=== PATIENT | female | born 1965 | race Caucasian/White ===

== ENCOUNTER 2019-07-07 03:54 | Observation (INO) | payer BC ==
[~2019-07-07] VITALS: Ht 165.1 cm; Wt 125.0 kg
[2019-07-07] VITALS (10 sets, daily range): BP systolic 117–138; BP diastolic 64–86
[2019-07-07] MEDS ORDERED: BISACODYL 10 MG SUPP (DULCOLAX) PR PRN (04:15)
[2019-07-07] MEDS ORDERED: ONDANSETRON 4 MG/2 ML (SDV) Z0FRAN IV PRN (04:15)
[2019-07-07] MEDS ORDERED: polyethylene glycoL POWDER 17 GM (MIRALAX) PACK PO PRN (04:15)
[2019-07-07] MEDS ORDERED: MELATONIN 3 MG TABLET PO PRN (04:15)
[2019-07-07] MEDS: IBUPROFEN 600 MG (MOTRIN) TAB PO SCH ×3 (05:48→19:52)
[2019-07-07 06:55] LABS: BASOPHILS % (AUTO) 0 % (0-10); EOSINOPHILS # (AUTO) 0.3 10^3/uL (0.0-0.3); EOSINOPHILS % (AUTO) 3 % (0-10); HEMATOCRIT 40 % (35-52); HEMOGLOBIN 12.7 G/DL (11.5-16.0); LYMPHOCYTES # (AUTO) 1.7 X 10^3 (1.0-4.0); LYMPHOCYTES % (AUTO) 16 % (12-44); MEAN CORPUSCULAR HEMOGLOBIN 30 PG (25-34); MEAN CORPUSCULAR HGB CONC 32 G/DL (32-36); MEAN CORPUSCULAR VOLUME 93 FL (80-99); MEAN PLATELET VOLUME 9.2 FL (7.4-10.4); MONOCYTES # (AUTO) 0.7 X 10^3 (0.0-1.0); MONOCYTES % (AUTO) 7 % (0-12); NEUTROPHILS # (AUTO) 7.9 X 10^3 (1.8-7.8); NEUTROPHILS % (AUTO) 75 % (42-75); PLATELET COUNT 297 10^3/uL (130-400); WHITE BLOOD COUNT 10.6 10^3/uL (4.3-11.0)
[2019-07-07 07:13] LABS: ALANINE AMINOTRANSFERASE 21 U/L (0-55); ALBUMIN 3.7 GM/DL (3.2-4.5); ALKALINE PHOSPHATASE 109 U/L (40-136); BILIRUBIN,TOTAL 0.4 MG/DL (0.1-1.0); BUN/CREATININE RATIO 18; CALCIUM 9.4 MG/DL (8.5-10.1); CARBON DIOXIDE 23 MMOL/L (21-32); CHLORIDE 109 MMOL/L (98-107); CREATININE SERUM 0.78 MG/DL (0.60-1.30); GFR ESTIMATED > 60; GLUCOSE 110 MG/DL (70-105); SODIUM 142 MMOL/L (135-145)
[2019-07-07] MEDS ORDERED: FLU QUADRIvalent (5+ YOA) 2019-2020 (AFLURIA) 0.5 ML IM ONE (07:15)
--- NOTE | 2019-07-07 08:34 | History & Physical-Hospitalist ---
History of Present Illness HPI/Chief Complaint Pt is a 53yoCM with no known PMH who presented to outside ER due to chest pain. She states that she slept in a chair a few days ago and has had shoulder since then that she didn't think much other. She has also had a cough during this time frame. 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 She took some Aleve which helped. She then went to a game last night and after eating at [employer] and walking around [place] she felt short of breath. On her drive home she decided to seek evaluation in the ER. She underwent CTA which was negative for central PE. Troponin was done and was negative. CTA did revealed a small/moderate pericardial effusion and the [employer] believed she heard a friction rub. She was transferred here for cardiology evaluation. She states the motrin this morning has helped. She describes her current pain as her left breast feeling heavier than normal but days it is not chest heaviness. Of note her daughter is on the heart transplant list due to what sounds like viral myocarditis. Date Seen 07/07/19 Time Seen by a Provider: 08:31 Attending Physician Todd Coles MD PCP No,Local Physician Referring Physician Date of Admission Jul 07, 2019 at 05:08 Home Medications & Allergies Home Medications Reviewed patient Home Medication Reconciliation performed by pharmacy medication reconciliations drafting technician and/or nursing. Patients Allergies have been reviewed. Allergies Allergies Coded Allergies No Allergy Information Available (Unverified07/07/19) Past Wxogdlt-Wfniwl-Gwrlrr Hx Past Med/Social Hx: Reviewed Nursing Past Med/Soc Hx Patient Social History Marrital Status: Employed/Student: employed Smoking Status: Never a Smoker Recent Foreign Travel: No Contact w/other who traveled: No Recent Infectious Disease Expo: No Past Medical History Female Reproductive Disorders: Polycystic Ovarian Dis Family History Reviewed Nursing Family Hx Review of Systems Constitutional: chills; No fever, No weakness EENTM: no symptoms reported Respiratory: cough, dyspnea on exertion; No hemoptysis, No wheezing Cardiovascular: chest pain; No edema, No Hx of Intervention Gastrointestinal: no symptoms reported Genitourinary: no symptoms reported Musculoskeletal: joint pain (shoulder pain) Skin: no symptoms reported Psychiatric/Neurological: No Symptoms Reported Physical Exam Physical Exam Vital Signs Vital Signs - First Documented 07/07/19 05:15 Temp 36.1 Pulse 86 Resp 20 B/P (MAP) 117/68 (84) Pulse Ox 94 O2 Delivery Room Air Capillary Refill : Height, Weight, BMI Height: '" Weight: lbs. oz. kg; 46.37 BMI Method: General Appearance: No Apparent Distress, WD/WN, Obese HEENT: PERRL/EOMI, Moist Mucous Membranes; No Scleral Icterus (L), No Scleral Icterus (R) Neck: Normal Inspection, Supple Respiratory: Chest Non Tender, Lungs Clear, No Accessory Muscle Use, No Respiratory Distress Cardiovascular: Regular Rate, Rhythm, No Murmur Gastrointestinal: Normal Bowel Sounds, Non Tender, Soft Extremity: No Calf Tenderness, No Pedal Edema Neurologic/Psychiatric: Alert, Oriented x3, Normal Mood/Affect Skin: Normal Color, Warm/Dry Results Results/Procedures Labs Laboratory Tests 07/07/19 06:40 07/08/19 03:07 07/08/19 03:08 Patient resulted labs reviewed. Imaging: Reviewed Imaging Report Assessment/Plan Admission Diagnosis Chest Pain Admission Status: Observation Assessment and Plan Chest pain Concern for pericarditis from [facility] Echo ordered Started on ibuprofen I think more consistent with pleurisy given history and exam Cardiology consulted, appreciate recs Troponin negative at OSH and here CRP elevated Monitor on Telemetry Diagnosis/Problems Diagnosis/Problems (1) Chest pain Qualifiers: Chest pain type: chest pain on breathing Qualified Codes: R07.1 - Chest pain on breathing Clinical Quality Measures DVT/VTE Risk/Contraindication: Risk Factor Score Per Nursin RFS Level Per Nursing on Admit: 4+=Very High TODD COLES MD Jul 07, 2019 08:33
[2019-07-07] MEDS: BENZONATATE 100 MG (TESSALON) CAPSULE PO PRN ×2 (09:10→20:05)
--- NOTE | 2019-07-07 11:18 | Consultation-Cardiology ---
HPI-Cardiology Cardiology Consultation Date of Consultation 07/07/19 Date of Admission Time Seen by Provider: 11:13 Indication: Chest pain HPI 53-year-old lady with family history of heart disease, was in her usual state of health, has been having mild cough and upper respiratory tract congestion, started with shoulder pain last week, reporting left sided shoulder pain, improved by stretching. Continue to have low-grade fever and cough and feeling tired, started to have left-sided chest pain described as dull achiness underneath her left breast not radiating, mild discomfort with deep inspiration and coughing. No shortness of breath. No syncope or near syncopal episode, reporting mild pedal edema usually by the end of the day. Home Medications & Allergies Allergies: Coded Allergies: No Allergy Information Available (Unverified , 07/07/19) Home Medication List Reviewed: Yes TNT-Ebnlel-Ujsujx Hx Patient Social History Marital Status: Employed/Student: employed Smoking Status: Never a Smoker Recent Foreign Travel: No Recent Infectious Disease Expo: No Past Medical History Discussed below Family Medical History Family Medical Hx Mother has history of congestive heart failure Daughter has history of pulmonary stenosis and heart failure Review of Systems-General Review of Systems Constitutional: chills; No fever; malaise; No weakness EENTM: see HPI, no symptoms reported Respiratory: see HPI, cough, dyspnea on exertion; No hemoptysis, No orthopnea, No phlegm, No short of breath, No stridor, No wheezing, No other Cardiovascular: see HPI, chest pain, edema; No Hx of Intervention, No palpitations, No syncope, No vascular heart diseas, No other Gastrointestinal: no symptoms reported, see HPI Genitourinary: no symptoms reported, see HPI Musculoskeletal: see HPI, joint pain (shoulder pain) Skin: no symptoms reported, see HPI Psychiatric/Neurological: No Symptoms Reported, See HPI Reviewed Test Results Reviewed Test Results Lab Laboratory Tests Test 07/07/19 06:40 Range/Units White Blood Count 10.6 4.3-11.0 10^3/uL Red Blood Count 4.27 L 4.35-5.85 10^6/uL Hemoglobin 12.7 11.5-16.0 G/DL Hematocrit 40 35-52 % Mean Corpuscular Volume 93 80-99 FL Mean Corpuscular Hemoglobin 30 25-34 PG Mean Corpuscular Hemoglobin Concent 32 32-36 G/DL Red Cell Distribution Width 14.0 10.0-14.5 % Platelet Count 297 130-400 10^3/uL Mean Platelet Volume 9.2 7.4-10.4 FL Neutrophils (%) (Auto) 75 42-75 % Lymphocytes (%) (Auto) 16 12-44 % Monocytes (%) (Auto) 7 0-12 % Eosinophils (%) (Auto) 3 0-10 % Basophils (%) (Auto) 0 0-10 % Neutrophils # (Auto) 7.9 H 1.8-7.8 X 10^3 Lymphocytes # (Auto) 1.7 1.0-4.0 X 10^3 Monocytes # (Auto) 0.7 0.0-1.0 X 10^3 Eosinophils # (Auto) 0.3 0.0-0.3 10^3/uL Basophils # (Auto) 0.0 0.0-0.1 10^3/uL Sodium Level 142 135-145 MMOL/L Potassium Level 4.0 3.6-5.0 MMOL/L Chloride Level 109 H 98-107 MMOL/L Carbon Dioxide Level 23 21-32 MMOL/L Anion Gap 10 5-14 MMOL/L Blood Urea Nitrogen 14 7-18 MG/DL Creatinine 0.78 0.60-1.30 MG/DL Estimat Glomerular Filtration Rate > 60 BUN/Creatinine Ratio 18 Glucose Level 110 H 70-105 MG/DL Calcium Level 9.4 8.5-10.1 MG/DL Corrected Calcium 9.6 8.5-10.1 MG/DL Total Bilirubin 0.4 0.1-1.0 MG/DL Aspartate Amino Transf (AST/SGOT) 14 5-34 U/L Alanine Aminotransferase (ALT/SGPT) 21 0-55 U/L Alkaline Phosphatase 109 40-136 U/L Troponin I < 0.028 <0.028 NG/ML C-Reactive Protein High Sensitivity 8.25 H 0.00-0.50 MG/DL Total Protein 7.0 6.4-8.2 GM/DL Albumin 3.7 3.2-4.5 GM/DL Physical Exam Physical Exam Vital Signs Vital Signs - First Documented 07/07/19 05:15 Temp 36.1 Pulse 86 Resp 20 B/P (MAP) 117/68 (84) Pulse Ox 94 O2 Delivery Room Air Capillary Refill : Height, Weight, BMI Height: '" Weight: lbs. oz. kg; 46.37 BMI Method: General Appearance: No Apparent Distress, WD/WN, Obese Eyes: Bilateral Eye Normal Inspection, Bilateral Eye PERRL, Bilateral Eye EOMI HEENT: PERRL/EOMI, Moist Mucous Membranes; No Scleral Icterus (L), No Scleral Icterus (R) Neck: Normal Inspection, Supple Respiratory: Chest Non Tender, Lungs Clear, No Accessory Muscle Use, No R espiratory Distress Cardiovascular: Regular Rate, Rhythm, No Murmur Gastrointestinal: Normal Bowel Sounds, Non Tender, Soft Back: Normal Inspection, No CVA Tenderness, No Vertebral Tenderness Extremity: No Calf Tenderness, No Pedal Edema Neurologic/Psychiatric: Alert, Oriented x3, Normal Mood/Affect Skin: Normal Color, Warm/Dry Lymphatic: No Adenopathy A/P-Cardiology Admission Diagnosis Chest pain Shortness of breath Family history of atherosclerosis Assessment/Plan Chest pain nonspecific etiology, atypical in presentation, EKG showed poor R- wave progression in the anterior lead, CT scan was reported to have small amount of pericardial effusion, I will evaluate 2-D echocardiogram and planning to do stress test as an outpatient. Cough and shortness of breath, upper respiratory tract infection, nasal con gestion, managed by primary care physician Recurrent pedal edema, probably secondary to venous insufficiency, planning to evaluate echocardiogram and recommended compression stocking Obesity, BMI 46, high risk of sleep apnea, reporting snoring, consider sleep study as an outpatient Family history of heart disease Clinical Quality Measures DVT/VTE Risk/Contraindication: Risk Factor Score Per Nursin RFS Level Per Nursing on Admit: 4+=Very High CHITO PETERSON MD Jul 07, 2019 11:18
[2019-07-07] MEDS ORDERED: SALINE NASAL SPRAY (OCEAN) 45 ML BTL PRN (15:15)
[2019-07-07] MEDS ORDERED: PATIENT MAY USE OWN MED,SINGLE MED PO SCH (15:15)
--- NOTE | 2019-07-07 15:21 | Diagnostic Imaging Report ---
PROCEDURE: Chest 1 view, AP/PA only. INDICATION: Chest pain. COMPARISON: None available. FINDINGS: Low lung volumes. Opacities in the left lung base are felt to be due to summation shadow, patient's body habitus and cardiac shadow; however, the posterior lower lobes are poorly evaluated by portable radiography. No pleural effusion or pneumothorax. Cardiac silhouette is enlarged. IMPRESSION: Left basilar opacities favor summation shadow due to patient's body habitus and cardiac silhouette; however, posterior lower lobes are poorly evaluated by portable radiography. If further evaluation of this is deemed warranted, PA and lateral chest radiographs would provide much better assessment. Dictated by: Dictated on workstation # [id number]
[2019-07-07] MEDS ORDERED: MONTELUKAST 10 MG (SINGULAIR) TAB PO SCH (21:00)
[2019-07-08] VITALS: BP 124/74
[2019-07-08 03:24] LABS: HEMOGLOBIN 12.6 G/DL (11.5-16.0); MEAN PLATELET VOLUME 8.9 FL (7.4-10.4); RED CELL DISTRIBUTION WIDTH 14.4 % (10.0-14.5); WHITE BLOOD COUNT 6.3 10^3/uL (4.3-11.0)
[2019-07-08 03:43] LABS: ALANINE AMINOTRANSFERASE 24 U/L (0-55); ALBUMIN 3.6 GM/DL (3.2-4.5); ALKALINE PHOSPHATASE 99 U/L (40-136); BILIRUBIN,TOTAL 0.6 MG/DL (0.1-1.0); BUN/CREATININE RATIO 15; CALCIUM 9.5 MG/DL (8.5-10.1); CARBON DIOXIDE 21 MMOL/L (21-32); CHLORIDE 109 MMOL/L (98-107); CREATININE SERUM 0.81 MG/DL (0.60-1.30); GFR ESTIMATED > 60; GLUCOSE 92 MG/DL (70-105); POTASSIUM 3.8 MMOL/L (3.6-5.0); SODIUM 141 MMOL/L (135-145); TOTAL PROTEIN 6.9 GM/DL (6.4-8.2)
[2019-07-08] MEDS: IBUPROFEN 600 MG (MOTRIN) TAB PO SCH (07:35)
[2019-07-08 08:00] VITALS: BP 127/78
[2019-07-08] MEDS: BENZONATATE 100 MG (TESSALON) CAPSULE PO PRN (08:02)
--- NOTE | 2019-07-08 08:47 | Cardiology Progress Note ---
Subjective Date Seen by Provider: Jul 08, 2019 Time Seen by Provider: 08:46 Subjective/Events-last exam Patient is sitting in a chair, still having some cough, no chest pain Review of Systems General: No Chills, No Night Sweats, No Fatigue, No Malaise, No Appetite, No Other HEENT: No Head Aches, No Visual Changes, No Eye Pain, No Ear Pain, No Dysphasia, No Sinus Congestion, No Post Nasal Drip, No Sore Throat, No Other Pulmonary: No Dyspnea, No Cough, No Pleuritic Chest Pain, No Other Cardiovascular: No: Chest Pain, Palpitations, Orthopnea, Paroxysmal Noc. Dyspnea, Edema, Lt Headedness, Other Objective-Cardiology Exam Last Set of Vital Signs Vital Signs 07/08/19 07/08/19 04:00 07:00 Pulse 92 Resp 25 Pulse Ox 92 O2 Delivery Room Air Capillary Refill : Less Than 3 Seconds I&O Intake and Output 07/08/19 00:00 Intake Total 2490 ml Output Total 3700 ml Balance -1210 ml Intake Oral 2490 ml Output Urine Total 3700 ml # Bowel Movements 1 Daily Weight Change No No General: Alert, Oriented X3, Cooperative HEENT: Atraumatic, PERRLA Neck: Supple, No JVD, No Thyromegaly Lungs: Clear to Auscultation, Normal Air Movement Heart: Regular Rate, Normal S1, Normal S2, No Murmurs Abdomen: Normal Bowel Sounds, Soft, No Tenderness, No Hepatosplenomegaly, No Masses Extremities: No Clubbing, No Cyanosis, No Edema, Normal Pulses, No Tenderness/Swelling Skin: No Rashes, No Breakdown, No Significant Lesion Neuro: Normal Gait, Normal Speech, Strength at 5/5 X4 Ext, Normal Tone, Sensation Intact Psych/Mental Status: Mental Status NL, Mood NL Results Lab Laboratory Tests 07/08/19 03:07 07/08/19 03:08 A/P-Cardiology Admission Diagnosis Chest pain Shortness of breath Family history of atherosclerosis Assessment/Plan Chest pain nonspecific etiology, atypical in presentation, EKG showed poor R- wave progression in the anterior lead, CT scan was reported to have small amount of pericardial effusion, echocardiogram did not show any significant pericardial effusion, normal LV size and function. Planning to do a stress test as an outp atient in one to 2 weeks Cough and shortness of breath, upper respiratory tract infection, nasal congestion, managed by primary care physician Recurrent pedal edema, probably secondary to venous insufficiency, planning to evaluate echocardiogram and recommended compression stocking Obesity, BMI 46, high risk of sleep apnea, reporting snoring, consider sleep study as an outpatient Family history of heart disease Clinical Quality Measures DVT/VTE Risk/Contraindication: Risk Factor Score Per Nursin RFS Level Per Nursing on Admit: 4+=Very High CHITO PETERSON MD Jul 08, 2019 08:47
--- NOTE | 2019-07-08 09:39 | Discharge Inst-Simple/Standard ---
Discharge Inst-Standard Patient Instructions/Follow Up Plan of Care/Instructions/FU: Please continue to take your medications as written. Please follow up with a primary care doctor in the next 2 weeks to follow up this hospital stay. Please follow up with Dr Hayes in 1-2 weeks as well. Activity as Tolerated: Yes Discharge Diet: No Restrictions Return to The Hospital For: Chest pain, shortness of breath, worsening cough, fever, if you feel you are getting worse. TODD DAVID MD Jul 08, 2019 09:39
--- NOTE | 2019-07-08 10:04 | Discharge Summary ---
Diagnosis/Chief Complaint Date of Admission Jul 07, 2019 at 05:08 Date of Discharge Discharge Date: Jul 08, 2019 Admission Diagnosis Chest Pain Primary Care No,Local Physician Discharge Diagnosis (1) Chest pain Discharge Summary Discharge Physical Exam Allergies: Coded Allergies: No Allergy Information Available (Unverified , 07/07/19) Vitals & I&Os Vital Signs Date Time Temp Pulse Resp B/P (MAP) Pulse Ox O2 Delivery O2 Flow Rate FiO2 07/08/19 08:15 Room Air 07/08/19 08:15 95 07/08/19 08:00 37.2 89 18 127/78 (94) Hospital Course Labs (last 24 hrs) Laboratory Tests 07/08/19 03:07: White Blood Count 6.3, Red Blood Count 4.20L, Hemoglobin 12.6, Hematocrit 39, Mean Corpuscular Volume 93, Mean Corpuscular Hemoglobin 30, Mean Corpuscular Hemoglobin Concent 32, Red Cell Distribution Width 14.4, Platelet Count 275, Mean Platelet Volume 8.9 07/08/19 03:08: Sodium Level 141, Potassium Level 3.8, Chloride Level 109H, Carbon Dioxide Level 21, Anion Gap 11, Blood Urea Nitrogen 12, Creatinine 0.81, Estimat Glomerular Filtration Rate > 60, BUN/Creatinine Ratio 15, Glucose Level 92, Calcium Level 9.5, Corrected Calcium 9.8, Total Bilirubin 0.6, Aspartate Amino Transf (AST/SGOT) 18, Alanine Aminotransferase (ALT/SGPT) 24, Alkaline Phosphatase 99, Total Protein 6.9, Albumin 3.6 Patient resulted labs reviewed. Pending Labs Laboratory Tests 07/08/19 03:07: White Blood Count 6.3, Red Blood Count 4.20, Hemoglobin 12.6, Hematocrit 39, Mean Corpuscular Volume 93, Mean Corpuscular Hemoglobin 30, Mean Corpuscular Hemoglobin Concent 32, Red Cell Distribution Width 14.4, Platelet Count 275, Mean Platelet Volume 8.9 07/08/19 03:08: Sodium Level 141, Potassium Level 3.8, Chloride Level 109, Carbon Dioxide Level 21, Anion Gap 11, Blood Urea Nitrogen 12, Creatinine 0.81, Estimat Glomerular Filtration Rate > 60, BUN/Creatinine Ratio 15, Glucose Level 92, Calcium Level 9.5, Corrected Calcium 9.8, Total Bilirubin 0.6, Aspartate Amino Transf (AST/SGOT) 18, Alanine Aminotransferase (ALT/SGPT) 24, Alkaline Phosphatase 99, Total Protein 6.9, Albumin 3.6 Imaging: Reviewed Imaging Report Discharge Home Medications: Active Scripts Active No Active Prescriptions or Reported Medications Instructions to patient/family Please see electronic discharge instructions given to patient. Clinical Quality Measures DVT/VTE Risk/Contraindication: Risk Factor Score Per Nursin RFS Level Per Nursing on Admit: 4+=Very High Problem Qualifiers (1) Chest pain: Chest pain type: chest pain on breathing Qualified Codes: R07.1 - Chest pain on breathing TODD DAVID MD Jul 08, 2019 10:04
== END 2019-07-08 10:30 | disposition home or self-care (01) ==
LOC: INTOOBSV 05:08 → ICU 05:08
PROVIDERS: ADMIT Family Medicine; ATTEND Family Medicine
DX: R07.1 Chest pain on breathing (principal); I31.3 Pericardial effusion (noninflammatory); R06.02 Shortness of breath; E28.2 Polycystic ovarian syndrome; R60.0 Localized edema; J06.9 Acute upper respiratory infection, unspecified; E66.9 Obesity, unspecified; R06.83 Snoring; I34.0 Nonrheumatic mitral (valve) insufficiency; Z82.49 Family history of ischemic heart disease and other diseases of the circulatory system; Z68.42 Body mass index [BMI] 45.0-49.9, adult
CPT/HCPCS: 36415; 71045; 80053; 84484; 85025; 85027; 86141; 87081; 93005; 93306

== ENCOUNTER 2019-12-24 20:08 | Emergency (ER) | payer BC ==
[~2019-12-24] VITALS: Ht 165.1 cm; Wt 120.0 kg
[2019-12-24 21:02] LABS: BASOPHILS % (AUTO) 0 % (0-10); EOSINOPHILS # (AUTO) 0.1 10^3/uL (0.0-0.3); EOSINOPHILS % (AUTO) 1 % (0-10); HEMATOCRIT 42 % (35-52); HEMOGLOBIN 13.9 G/DL (11.5-16.0); LYMPHOCYTES # (AUTO) 1.4 X 10^3 (1.0-4.0); LYMPHOCYTES % (AUTO) 30 % (12-44); MEAN CORPUSCULAR HEMOGLOBIN 30 PG (25-34); MEAN CORPUSCULAR HGB CONC 33 G/DL (32-36); MEAN CORPUSCULAR VOLUME 90 FL (80-99); MEAN PLATELET VOLUME 9.3 FL (7.4-10.4); MONOCYTES # (AUTO) 0.5 X 10^3 (0.0-1.0); MONOCYTES % (AUTO) 10 % (0-12); NEUTROPHILS # (AUTO) 2.8 X 10^3 (1.8-7.8); NEUTROPHILS % (AUTO) 58 % (42-75); PLATELET COUNT 227 10^3/uL (130-400); RED CELL DISTRIBUTION WIDTH 14.8 % (10.0-14.5); WHITE BLOOD COUNT 4.7 10^3/uL (4.3-11.0)
[2019-12-24] MEDS ORDERED: ACETAMINOPHEN 500 MG TAB (TYLENOL) ONE (21:02)
[2019-12-24] MEDS ORDERED: ACETAMINOPHEN 500 MG TAB (TYLENOL) PO ONE (21:15)
[2019-12-24 21:19] LABS: ERYTHROCYTE SEDIMENTATION RATE 56 MM/HR (0-30)
[2019-12-24 21:20] LABS: INR 0.9 (0.8-1.4); PROTHROMBIN TIME PATIENT 12.8 SEC (12.2-14.7)
[2019-12-24 21:21] LABS: ALANINE AMINOTRANSFERASE 111 U/L (0-55); ALBUMIN 3.9 GM/DL (3.2-4.5); ALKALINE PHOSPHATASE 102 U/L (40-136); BILIRUBIN,TOTAL 0.4 MG/DL (0.1-1.0); BUN/CREATININE RATIO 15; CALCIUM 8.8 MG/DL (8.5-10.1); CARBON DIOXIDE 24 MMOL/L (21-32); CHLORIDE 102 MMOL/L (98-107); CREATININE SERUM 0.86 MG/DL (0.60-1.30); GFR ESTIMATED > 60; GLUCOSE 91 MG/DL (70-105); SODIUM 138 MMOL/L (135-145); TOTAL PROTEIN 7.6 GM/DL (6.4-8.2)
[2019-12-24 21:28] LABS: FIBRIN DEGRADATION PRODUCTS 0.44 UG/ML (0.00-0.49)
--- NOTE | 2019-12-24 21:36 | Diagnostic Imaging Report ---
INDICATION: Positive for COVID with worsening dyspnea. Frontal chest obtained at 09:15 p.m. and compared to 07/07/2019. FINDINGS: Heart is borderline prominent. There is poor inspiration. There are patchy perihilar interstitial infiltrates which are new compared to the prior study and may be due to atypical pneumonia. There is no pneumothorax or pleural fluid. IMPRESSION: Patchy perihilar interstitial infiltrates are present which are new compared to the prior study and compatible with atypical pneumonitis. There is no pneumothorax or pleural fluid. There is poor inspiration. Dictated by: Dictated on workstation # [id number]
[2019-12-24] MEDS ORDERED: methylPREDNISolone 125 MG (Solu-MEDROL) VIAL ONE (21:58)
[2019-12-24] MEDS ORDERED: AZITHROMYCIN 250 MG TAB (ZITHROMAX) PO ONE (22:00)
[2019-12-24] MEDS ORDERED: cefTRIAXone FOR IV USE 1,000 MG in WATER (STERILE) FOR INJECTION 10 ML IV ONE (22:00)
[2019-12-24] MEDS ORDERED: AZIT500T PO (22:28)
[2019-12-24] MEDS ORDERED: RT-ALBUINH IH (22:28)
[2019-12-24] MEDS ORDERED: GUAI1TBM19 PO (22:28)
[2019-12-24] MEDS ORDERED: BENZ100C18 PO (22:28)
[2019-12-24] MEDS ORDERED: CEFD300C3 PO (22:28)
[2019-12-24] MEDS ORDERED: METH4TAB PO (22:28)
--- NOTE | 2019-12-24 22:28 | ED Respiratory ---
General Chief Complaint: Cough/Cold/Flu Symptoms Stated Complaint: COVID POSITIVE, SYMPTOMS WORSENING Nursing Triage Note: TO ED VIA POV AND AMBULATORY TO ROOM 10 WITH COVID 19 PRECAUTIONS PT IS COVID 19 POSITIVE. PT STATES SHE IS 8 DAYS INTO TESTING POSITIVE AND HAS DEVELOPED COUGH TODAY, O2 SATS HAVE BEEN LOWER FOR HER AFTER EXERTION WITH RANGE 89-97% ON RA. IS ALSO COVID 19 POSITIVE AND HAS BEEN IN ICU WITH PNEUMONIA AND RECENTLY TRANSFERRED TO MEDICAL UNIT TODAY. Source: patient History of Present Illness Date Seen by Provider: Dec 24, 2019 Time Seen by Provider: 20:15 Initial Comments PT ARRIVES VIA POV FROM [place]. PT STATES SHE IS COVID-19 POSITIVE, IS HER , WHO IS CURRENTLY ADMITTED HERE IN ICU WITH PNEUMONIA (HE BEGAN HAVING SYMPTOMS ON 12/13/19--HE WORKS AT [employer] IN [place]. PT WORKS AT [employer]--PT HAS BEEN OFF WORK FOR THE LAST 8 DAYS, WHEN SHE BEGAN HAVING SYMPTOMS AND AFTER TESTED POSITIVE. 2 CHILDREN AT HOME, AGES 17 AND 26 ARE ALSO BOTH COVID-19 POSITIVE, BUT THEIR SYMPTOMS ARE MILDER. STATES SHE BEGAN HAVING "SINUS INFECTION" SYMPTOMS LAST Tuesday12/16/19--HAD NASAL CONGESTION, SINUS PRESSURE ON THE TOP OF HER HEAD. WENT TO [facility] ON TUESDAY AND WAS TESTED FOR COVID AND RESULTS CAME BACK POSITIVE ON Tuesday12/19/19. SHE WAS PLACED ON STEROIDS ON TUESDAY AND FINISHED THOSE ON Tuesday12/21/19 STATES SHE DID HAVE IMPROVEMENT IN THOSE SYMPTOMS WITH STEROIDS HAS BEEN RUNNING FEVER UP TO 101 FOR THE LAST WEEK, WITH LAST TEMP BEING SOMETIME LAST NIGHT. HAS NOT TAKEN ANY TYLENOL OR MOTRIN SINCE YESTERDAY. TODAY, SHE BEGAN HAVING A NON-PRODUCTIVE COUGH, AND NOTICE THAT HER O2 SATS WOULD DROP LOW 89% WITH EXERTION--THEN BACK UP TO 97% WITH REST. NO CHEST PAIN NO SWELLING IN LEGS/FEET OR PAIN IN [place] STATES FOOD TASTES A LITTLE "ODD" TODAY HAS A "TICKLE" IN HER THROAT--"LIKE I HAVE A HAIR IN MY THROAT" BUT DOES NOT HAVE ANY PAIN IN HER THROAT NO GI SYMPTOMS NO URINARY SYMPTOMS LMP 1 YEAR AGO. [facility]ations Allergies Coded Allergies: No Allergy Information Available (Unverified , 07/07/19) Home Medications Albuterol Sulfate 1 Puff Puff, 2 PUFF IH Q4H 1 PUFF = 90 MCG Prescribed by: WILDA TEJADA on 12/24/192227 Azithromycin 500 Mg Tablet, 500 MG PO DAILY Prescribed by: WILDA TEJADA on 12/24/192227 Benzonatate 100 Mg Capsule, 100-200 MG PO TID Prescribed by: WILDA TEJADA on 12/24/192227 Cefdinir 300 Mg Capsule, 300 MG PO BID Prescribed by: WILDA TEJADA on 12/24/192227 Guaifenesin/Dextromethorphan 1 Each Tbmp.12hr, 1 EACH PO BID Prescribed by: WILDA TEJADA on 12/24/192227 Methylprednisolone 4 Mg Tab.ds.pk, 4 MG PO UD PER DOSE PACK INSTRUCTIONS Prescribed by: WILDA TEJADA on 12/24/192227 Patient Home Medication List Home Medication List Reviewed: Yes Review of Systems Review of Systems Constitutional: see HPI, fever, malaise, weakness EENTM: see HPI, nose congestion Respiratory: see HPI, cough, dyspnea on exertion; No phlegm, No short of breath, No wheezing Cardiovascular: no symptoms reported; No chest pain, No edema, No palpitations, No syncope Gastrointestinal: no symptoms reported; No abdominal pain, No diarrhea, No nausea, No vomiting Genitourinary: no symptoms reported : No (LMP OVER A YEAR AGO) Musculoskeletal: no symptoms reported Skin: no symptoms reported Psychiatric/Neurological: No Symptoms Reported; Denies Headache Hematologic/Lymphatic: No Symptoms Reported Immunological/Allergic: no symptoms reported Past Txuznfq-Hunmei-[id number] Hx Past Med/Social Hx: Reviewed and Corrections made Patient Social History Alcohol Use: Denies Use Recreational Drug Use: No Smoking Status: Never a Smoker Recent Foreign Travel: No Contact w/Someone Who Travel: No Recent Infectious Disease Expo: Yes (COVID 19 POSITIVE) Past Medical History Surgeries: Yes ( X2;HYSTEROSCOPY/D&C;R ORBITAL PSUEDOTUMOR REMOVAL/2 "EYE TUCKS") Section, Eye Surgery Respiratory: No Cardiac: No Neurological: No : No Reproductive Disorders: Yes Female Reproductive Disorders: Polycystic Ovarian Dis Genitourinary: No Gastrointestinal: No Musculoskeletal: No Endocrine: Yes ("INSULIN RESISTANCE"--QUIT METFORMIN YEARS AGO ; OBESITY) HEENT: Yes (RIGHT ORBITAL PSEUDOTUMOR REMOVAL WITH 2 "EYE TUCKS" ) Psychosocial: No Integumentary: No Blood Disorders: No Physical Exam Vital Signs - First Documented Capillary Refill : Less Than 3 Seconds Height: '" Weight: lbs. oz. kg; 44.00 BMI Method: General Appearance: WD/WN, no apparent distress, obese HEENT: PERRL/EOMI, normal ENT inspection, TMs normal, pharynx normal Neck: non-tender, full range of motion, supple, normal inspection Respiratory: no respiratory distress, no accessory muscle use, decreased breath sounds (IN BASES), other (NO DYSPNEA. TALKS IN FULL SENTENCES. 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, no motor/sensory deficits, alert, normal mood/affect, oriented x 3 Skin: normal color, warm/dry Focused Exam Lactate Level 12/24/19 20:45: Lactic Acid Level 1.04 Lactic Acid Level Laboratory Tests Test 12/24/19 20:45 Lactic Acid Level 1.04 MMOL/L (0.50-2.00) Progress/Results/Core Measures Suspected Sepsis Recent Fever Within 48 Hours: Yes Infection Criteria Present: Documented Infection New/Unexplained Altered Menta: No Sepsis Screen: Possible Severe Sepsis Risk SIRS Temperature: Pulse: 92 Respiratory Rate: 18 Laboratory Tests 12/24/19 20:45: White Blood Count 4.7 Blood Pressure 144 /69 Mean: 94 12/24/19 20:45: Lactic Acid Level 1.04 Laboratory Tests 12/24/19 20:45: Creatinine 0.86, INR Comment 0.9, Platelet Count 227, Total Bilirubin 0.4 Results/Orders Lab Results Laboratory Tests Test 12/24/19 20:45 Range/Units White Blood Count 4.7 4.3-11.0 10^3/uL Red Blood Count 4.69 4.35-5.85 10^6/uL Hemoglobin 13.9 11.5-16.0 G/DL Hematocrit 42 35-52 % Mean Corpuscular Volume 90 80-99 FL Mean Corpuscular Hemoglobin 30 25-34 PG Mean Corpuscular Hemoglobin Concent 33 32-36 G/DL Red Cell Distribution Width 14.8 H 10.0-14.5 % Platelet Count 227 130-400 10^3/uL Mean Platelet Volume 9.3 7.4-10.4 FL Neutrophils (%) (Auto) 58 42-75 % Lymphocytes (%) (Auto) 30 12-44 % Monocytes (%) (Auto) 10 0-12 % Eosinophils (%) (Auto) 1 0-10 % Basophils (%) (Auto) 0 0-10 % Neutrophils # (Auto) 2.8 1.8-7.8 X 10^3 Lymphocytes # (Auto) 1.4 1.0-4.0 X 10^3 Monocytes # (Auto) 0.5 0.0-1.0 X 10^3 Eosinophils # (Auto) 0.1 0.0-0.3 10^3/uL Basophils # (Auto) 0.0 0.0-0.1 10^3/uL Erythrocyte Sedimentation Rate 56 H 0-30 MM/HR Prothrombin Time 12.8 12.2-14.7 SEC INR Comment 0.9 0.8-1.4 Activated Partial Thromboplast Time 35 24-35 SEC D-Dimer 0.44 0.00-0.49 UG/ML Sodium Level 138 135-145 MMOL/L Potassium Level 4.0 3.6-5.0 MMOL/L Chloride Level 102 98-107 MMOL/L Carbon Dioxide Level 24 21-32 MMOL/L Anion Gap 12 5-14 MMOL/L Blood Urea Nitrogen 13 7-18 MG/DL Creatinine 0.86 0.60-1.30 MG/DL Estimat Glomerular Filtration Rate > 60 BUN/Creatinine Ratio 15 Glucose Level 91 70-105 MG/DL Lactic Acid Level 1.04 0.50-2.00 MMOL/L Calcium Level 8.8 8.5-10.1 MG/DL Corrected Calcium 8.9 8.5-10.1 MG/DL Magnesium Level 2.0 1.6-2.4 MG/DL Total Bilirubin 0.4 0.1-1.0 MG/DL Aspartate Amino Transf (AST/SGOT) 70 H 5-34 U/L Alanine Aminotransferase (ALT/SGPT) 111 H 0-55 U/L Alkaline Phosphatase 102 40-136 U/L Lactate Dehydrogenase 227 H 125-220 U/L C-Reactive Protein High Sensitivity 4.99 H 0.00-0.50 MG/DL B-Type Natriuretic Peptide < 10.0 <100.0 PG/ML Total Protein 7.6 6.4-8.2 GM/DL Albumin 3.9 3.2-4.5 GM/DL Procalcitonin 0.03 <0.10 NG/ML My Orders Orders - WILDA TEJADA DO Cbc With Automated Diff (12/24/19 20:17) Comprehensive Metabolic Panel (12/24/19 20:17) Fibrin Degradation Products (12/24/19 20:17) Procalcitonin (Pct) (12/24/19 20:17) Hs C Reactive Protein (12/24/19 20:17) Erythrocyte Sedimentation Rate (12/24/19 20:17) LDH (12/24/19 20:17) Blood Culture (12/24/19 20:17) Chest 1 View, Ap/Pa Only (12/24/19 20:17) Ed Iv/Invasive Line Start (12/24/19 20:17) Monitor-Rhythm Ecg Trace Only (12/24/19 20:17) BNP (12/24/19 20:17) Lactic Acid Analyzer (12/24/19 20:17) Magnesium (12/24/19 20:17) Protime With Inr (12/24/19 20:17) Partial Thromboplastin Time (12/24/19 20:17) Acetaminophen Tablet (Tylenol Tablet) (12/24/19 21:15) Acetaminophen Tablet (Tylenol Tablet) (12/24/19 21:02) Ceftriaxone For Iv Use (Rocephin For I (12/24/19 22:00) Azithromycin Tablet (Zithromax Tablet) (12/24/19 22:00) Methylprednisolone Sod Succ (Solu-Medrol (12/24/19 21:58) Medications Given in ED Current Medications Medications Dose Ordered Sig/Robin Route Start Time Stop Time Status Last Admin Dose Admin Acetaminophen 1,000 mg ONCE ONCE PO 12/24/19 21:15 12/24/19 21:16 DC 12/24/19 21:06 1,000 MG Azithromycin 500 mg ONCE ONCE PO 12/24/19 22:00 12/24/19 22:01 DC 12/24/19 22:26 500 MG Ceftriaxone Sodium 1000 mg/ Sterile Water 10 ml @ 200 mls/hr ONCE ONCE IV 12/24/19 22:00 12/24/19 22:02 DC 12/24/19 22:26 200 MLS/HR Methylprednisolone Sodium Succinate 125 mg STK-MED ONCE .ROUTE 12/24/19 21:58 12/24/19 22:01 DC 12/24/19 22:27 125 MG Vital Signs/I&O 12/24/19 12/24/19 12/24/19 20:22 20:22 23:05 Temp 37.9 37.2 Pulse 92 82 Resp 18 18 B/P (MAP) 144/69 (94) 155/105 (94) Pulse Ox 94 94 O2 Delivery Room Air Room Air Room Air 12/25/19 00:00 Intake Total 10 ml Balance 10 ml Capillary Refill : Less Than 3 Seconds Blood Pressure Mean: 94 Progress Note : Progress Note PT PLACED IN ISOLATION ROOM AND PPE WORN AT ALL TIMES NO DETERIORATION IN PT'S CONDITION VITALS STABLE--O2 SATS IN MID TO UPPER 90'S ON ROOM AIR THROUGHOUT ER STAY. NO DYSPNEA TEMP DOWN WITH TYLENOL NO COUGH NOTED DURING ER STAY FEELS COMFORTABLE GOING HOME Diagnostic Imaging Comments CXR--PER RADIOLOGIST REPORT AT 3800 IMPRESSION: Patchy perihilar interstitial infiltrates are present which are new compared to the prior study and compatible with atypical pneumonitis. There is no pneumothorax or pleural fluid. There is poor inspiration. Reviewed: Reviewed by Me Departure Impression Primary Impression: PNEUMONIA DUE TO CORONAVIRUS/COVID 19 Disposition: HOME, SELF-CARE Condition: Stable Departure-Patient Inst. [facility] [facility] [place]ructions: Coronavirus Disease 2019 (COVID-19) (DC), Pneumonia, Adult (DC) Add. Discharge Instructions: LOTS OF CLEAR LIQUIDS TYLENOL AND MOTRIN NEEDED FOR PAIN OR FEVER FOLLOW UP WITH YOUR DR THIS WEEK FOR FURTHER CARE--CALL IN AM FOR APPOINTMENT. RETURN TO ER IF WORSE ENTIRE HOUSEHOLD AND ALL CONTACTS NEED TO QUARANTINE FOR AT LEAST 2 WEEKS--NO ONE ENTERS OR LEAVES THE HOME FOR THE NEXT 2 WEEKS, EXCEPT FOR DR. VISITS. All discharge instructions reviewed with patient and/or family. Voiced understanding. Scripts Azithromycin (Zithromax) 500 Mg Tablet 500 MG PO DAILY for 5 Days, #5 TAB Prov: WILDA TEJADA DO 12/24/19 Benzonatate (TESSALON PERLES) 100 Mg Capsule 100-200 MG PO TID, #30 CAP Prov: WILDA TEJADA DO 12/24/19 Guaifenesin/Dextromethorphan (Mucinex Dm ER 1,200-60 mg Tab) 1 Each Tbmp.12hr 1 EACH PO BID, #20 EA Prov: WILDA TEJADA DO 12/24/19 Methylprednisolone (Medrol) 4 Mg Tab.ds.pk 4 MG PO UD for 6 Days, #21 PKG PER DOSE PACK INSTRUCTIONS Prov: WILDA TEJADA DO 12/24/19 Cefdinir (Cefdinir) 300 Mg Capsule 300 MG PO BID, #20 CAP Prov: WILDA TEJADA DO 12/24/19 Albuterol Sulfate (PROAIR HFA) 1 Puff Puff 2 PUFF IH Q4H, #1 EA 1 PUFF = 90 MCG Prov: WILDA TEJADA DO 12/24/19 Work/School Note: Work Release Form WILDA TEJADA DO Dec 24, 2019 22:28
[2019-12-24 23:05] VITALS: BP 155/105
--- NOTE | 2019-12-24 23:05 | NUR ---
DC INSTRUCTIONS REVIEWED AND PT VERBALIZED UNDERSTANDING. D/C FORM NOT SIGNED R/T TO PT COVID-19 POSITIVE.
--- OUTSIDE RECORDS SUMMARY | 2019-12-25 00:02 | XMS REPORT | Continuity of Care Document ---
Author Organization Unknown Address Unknown Phone Unavailable Allergies Active Description Code Type Severity Reaction Onset Reported/Identified Relationship to Patient Clinical Status Yes NO KNOWN DRUG ALLERGIES UNKNOWN UNKNOWN Yes No Allergy Information Available [id number] Drug Allergy Unknown N/A 020 Medications Medication Packaging Start Date St op Date Route Dosage Sig KETOROLAC VIAL INJ 30 MG/CC (TORADOL VIAL) MG 07/07/2019 07/07/2019 ONCE&0003 NORMAL SALINE 1000CC IV BAG INJ 0.9 % (NS 1000CC IV BAG) ml 07/07/2019 07/07/2019 ONCE&0242 Problems Date Dx Coded Attending Type Code Diagnosis Diagnosed By 07/07/2019 LEISURE, WES Saldana 420.90 ACUTE PERICARDITIS, UNSPECIFIED 07/07/2019 LEISURE, WES W I30.9 ACUTE PERICARDITIS, UNSPECIFIED 07/07/2019 LEISURE, TABITHAA W 420.90 ACUTE PERICARDITIS, UNSPECIFIED 07/07/2019 LEISURE, TABITHAA W I30.9 ACUTE PERICARDITIS, UNSPECIFIED 07/07/2019 LEISURE, TABITHAA W 420.90 ACUTE PERICARDITIS, UNSPECIFIED 07/07/2019 LEISURE, TABITHAA W I30.9 ACUTE PERICARDITIS, UNSPECIFIED 07/08/2019 FRANKIE MCNAIR, TODD Bhakta Ot E28. 2 POLYCYSTIC OVARIAN SYNDROME 07/08/2019 FRANKIE MCNAIR, TODD Bhakta Ot E66. 9 OBESITY, UNSPECIFIED 07/08/2019 FRANKIE MCNAIR, TODD Bhakta Ot I31. 3 PERICARDIAL EFFUSION (NONINFLAMMATORY) 07/08/2019 TODD DAVID MD Ot I34. 0 NONRHEUMATIC MITRAL (VALVE) INSUFFICIENC 07/08/2019 TODD DAVID MD Ot J06. 9 ACUTE UPPER RESPIRATORY INFECTION, UNSPE 07/08/2019 FRANKIE MCNAIR, TODD Bhakta Ot R06. 02 SHORTNESS OF BREATH 07/08/2019 TODD DAVID MD Ot R06. 83 SNORING 07/08/2019 TODD DAVID MD Ot R07. 1 CHEST PAIN ON BREATHING 07/08/2019 TODD DAVID MD Ot R60. 0 LOCALIZED EDEMA 07/08/2019 TODD DAVID MD Ot Z68. 42 BODY MASS INDEX (BMI) 45.0-49.9, ADULT 07/08/2019 TODD DAVID MD Ot Z82. 49 FAMILY HX OF ISCHEM HEART DIS AND OTH DI 07/08/2019 TODD DAVID MD Ot E28. 2 POLYCYSTIC OVARIAN SYNDROME 07/08/2019 TODD DAVID MD Ot E66. 9 OBESITY, UNSPECIFIED 07/08/2019 TODD DAVID MD Ot I31. 3 PERICARDIAL EFFUSION (NONINFLAMMATORY) 07/08/2019 TODD DAVID MD Ot I34. 0 NONRHEUMATIC MITRAL (VALVE) INSUFFICIENC 07/08/2019 TODD DAVID MD Ot J06. 9 ACUTE UPPER RESPIRATORY INFECTION, UNSPE 07/08/2019 TODD DAVID MD Ot R06. 02 SHORTNESS OF BREATH 07/08/2019 TODD DAVID MD Ot R06. 83 SNORING 07/08/2019 TODD DAVID MD Ot R07. 1 CHEST PAIN ON BREATHING 07/08/2019 TODD DAVID MD Ot R60. 0 LOCALIZED EDEMA 07/08/2019 TODD DAVID MD Ot Z68. 42 BODY MASS INDEX (BMI) 45.0-49.9, ADULT 07/08/2019 TODD DAVID MD Ot Z82. 49 FAMILY HX OF ISCHEM HEART DIS AND OTH DI Procedures There is no data. Results Test Result Range D-Dimer - 07/07/19 00:15 DDimer 708.00 Result Verified by Repeat Analysi s ng/mL 21.00-229.00 EKG - 07/07/19 00:19 EKG Complete Influenza - 07/07/19 00:20 Influenza NEGATIVE FOR A and B 0.00-0.0 0 Thyroid Stimulating Hormone - 07/07/19 0 3:05 TSH 2.01 mIU/mL 0.32-5.00 Blood Culture - 07/07/19 03:50 PRELIM CULTURE RESULTS Blood Culture Negativ e, No Growth Day 1 FINAL CULTURE RESULTS Blood Culture Negative , No Growth Day 5 MEDIA PLATED Setup at 04:07 on 07/07/2019X [id number] Culture Media Position C50 CULTURE SOURCE drawn @ Right wrist Blood Culture - 07/07/19 03:55 PRELIM CULTURE RESULTS Blood Culture Negativ e, No Growth Day 1 FINAL CULTURE RESULTS Blood Culture Negative , No Growth Day 5 MEDIA PLATED Setup at 04:07 on 07/07/2019X [id number] Culture Media Position C45 CULTURE SOURCE drawn @ Left Arm Methicillin resistant Staphylococcus aur eus (MRSA) screening culture - 07/07/19 05:44 Methicillin resistant Staphylococcus aureus (MRSA) scr eening culture NEG NRG Complete blood count (CBC) with automate d white blood cell (WBC) differential - 07/07/19 06:40 Blood leukocytes automated count (number/volume) 10.6 10*3/uL 4.3-11.0 Blood erythrocytes automated count (number/volume) 4.27 10*6/uL 4.35-5.85 Venous blood hemoglobin measurement (mass/volume) 12.7 g/dL 11.5-16.0 Blood hematocrit (volume fraction) 40 % 35-52 Automated erythrocyte mean corpuscular volume 93 [ foz_us] 80-99 Automated erythrocyte mean corpuscular h emoglobin (mass per erythrocyte) 30 pg 25-34 Automated erythrocyte mean corpuscular h emoglobin concentration measurement (mass/volume) 32 g/dL 32-36 Automated erythrocyte distribution width ratio 14. 0 % 10.0- 14.5 Automated blood platelet count (count/volume) 297 10*3/uL 130-400 Automated blood platelet mean volume measurement 9.2 [foz_us] 7.4-10.4 Automated blood neutrophils/100 leukocytes 75 % 42-75 Automated blood lymphocytes/100 leukocytes 16 % 12-44 Blood monocytes/100 leukocytes 7 % 0-12 Automated blood eosinophils/100 leukocytes 3 % 0-10 Automated blood basophils/100 leukocytes 0 % 0-10 Blood neutrophils automated count (number/volume) 7.9 10*3 1.8-7.8 Blood lymphocytes automated count (number/volume) 1.7 10*3 1.0-4.0 Blood monocytes automated count (number/volume) 0. 7 10*3 0.0-1.0 Automated eosinophil count 0.3 10*3/uL 0 .0-0.3 Automated blood basophil count (count/volume) 0.0 10*3/uL 0.0-0.1 Comprehensive metabolic panel - 07/07/19 06:40 Serum or plasma sodium measurement (moles/volume) 142 mmol/L 135-145 Serum or plasma potassium measurement (moles/volume) 4.0 mmol/L 3.6-5.0 Serum or plasma chloride measurement (moles/volume) 109 mmol/L 98-107 Carbon dioxide 23 mmol/L 21-32 Serum or plasma anion gap determination (moles/volume) 10 mmol/L 5-14 Serum or plasma urea nitrogen measurement (mass/volume ) 14 mg/dL 7-18 Serum or plasma creatinine measurement (mass/volume) 0.78 mg/dL 0.60-1.30 Serum or plasma urea nitrogen/creatinine mass ratio 18 NRG Serum or plasma creatinine measurement w ith calculation of estimated glomerular filtration rate > NRG Serum or plasma glucose measurement (mass/volume) 110 mg/dL 70-105 Serum or plasma calcium measurement (mass/volume) 9.4 mg/dL 8.5-10.1 Serum or plasma total bilirubin measurement (mass/volu me) 0.4 mg/dL 0.1-1.0 Serum or plasma alkaline phosphatase anthony surement (enzymatic activity/volume) 109 U/L 40-136 Serum or plasma aspartate aminotransfera se measurement (enzymatic activity/volume) 14 U/L 5-34 Serum or plasma alanine aminotransferase measurement (enzymatic activity/volume) 21 U/L 0-55 Serum or plasma protein measurement (mass/volume) 7.0 g/dL 6.4-8.2 Serum or plasma albumin measurement (mass/volume) 3.7 g/dL 3.2-4.5 CALCIUM CORRECTED 9.6 mg/dL 8.5-10.1 Serum or plasma troponin i.cardiac measu rement (mass/volume) - 07/07/19 06:40 Serum or plasma troponin i.cardiac measurement (mass/v olume) < ng/mL <0.028 Serum or plasma C reactive protein measu rement (mass/volume) - 07/07/19 06:40 Serum or plasma C reactive protein measurement (mass/v olume) 8.25 mg/dL 0.00-0.50 Automated blood complete blood count (he mogram) panel - 07/08/19 03:07 Blood leukocytes automated count (number/volume) 6.3 10*3/uL 4.3-11.0 Blood erythrocytes automated count (number/volume) 4.20 10*6/uL 4.35-5.85 Venous blood hemoglobin measurement (mass/volume) 12.6 g/dL 11.5-16.0 Blood hematocrit (volume fraction) 39 % 35-52 Automated erythrocyte mean corpuscular volume 93 [ foz_us] 80-99 Automated erythrocyte mean corpuscular h emoglobin (mass per erythrocyte) 30 pg 25-34 Automated erythrocyte mean corpuscular h emoglobin concentration measurement (mass/volume) 32 g/dL 32-36 Automated erythrocyte distribution width ratio 14. 4 % 10.0- 14.5 Automated blood platelet count (count/volume) 275 10*3/uL 130-400 Automated blood platelet mean volume measurement 8.9 [foz_us] 7.4-10.4 Comprehensive metabolic panel - 07/08/19 03:08 Serum or plasma sodium measurement (moles/volume) 141 mmol/L 135-145 Serum or plasma potassium measurement (moles/volume) 3.8 mmol/L 3.6-5.0 Serum or plasma chloride measurement (moles/volume) 109 mmol/L 98-107 Carbon dioxide 21 mmol/L 21-32 Serum or plasma anion gap determination (moles/volume) 11 mmol/L 5-14 Serum or plasma urea nitrogen measurement (mass/volume ) 12 mg/dL 7-18 Serum or plasma creatinine measurement (mass/volume) 0.81 mg/dL 0.60-1.30 Serum or plasma urea nitrogen/creatinine mass ratio 15 NRG Serum or plasma creatinine measurement w ith calculation of estimated glomerular filtration rate > NRG Serum or plasma glucose measurement (mass/volume) 92 mg/dL 70-105 Serum or plasma calcium measurement (mass/volume) 9.5 mg/dL 8.5-10.1 Serum or plasma total bilirubin measurement (mass/volu me) 0.6 mg/dL 0.1-1.0 Serum or plasma alkaline phosphatase anthony surement (enzymatic activity/volume) 99 U/L 40-136 Serum or plasma aspartate aminotransfera se measurement (enzymatic activity/volume) 18 U/L 5-34 Serum or plasma alanine aminotransferase measurement (enzymatic activity/volume) 24 U/L 0-55 Serum or plasma protein measurement (mass/volume) 6.9 g/dL 6.4-8.2 Serum or plasma albumin measurement (mass/volume) 3.6 g/dL 3.2-4.5 CALCIUM CORRECTED 9.8 mg/dL 8.5-10.1 COVID-19 ([facility]) - 12/17/19 18:44 Complete blood count (CBC) with automate d white blood cell (WBC) differential - 12/24/19 20:45 Blood leukocytes automated count (number/volume) 4.7 10*3/uL 4.3-11.0 Blood erythrocytes automated count (number/volume) 4.69 10*6/uL 4.35-5.85 Venous blood hemoglobin measurement (mass/volume) 13.9 g/dL 11.5-16.0 Blood hematocrit (volume fraction) 42 % 35-52 Automated erythrocyte mean corpuscular volume 90 [ foz_us] 80-99 Automated erythrocyte mean corpuscular h emoglobin (mass per erythrocyte) 30 pg 25-34 Automated erythrocyte mean corpuscular h emoglobin concentration measurement (mass/volume) 33 g/dL 32-36 Automated erythrocyte distribution width ratio 14. 8 % 10.0- 14.5 Automated blood platelet count (count/volume) 227 10*3/uL 130-400 Automated blood platelet mean volume measurement 9.3 [foz_us] 7.4-10.4 Automated blood neutrophils/100 leukocytes 58 % 42-75 Automated blood lymphocytes/100 leukocytes 30 % 12-44 Blood monocytes/100 leukocytes 10 % 0-12 Automated blood eosinophils/100 leukocytes 1 % 0-10 Automated blood basophils/100 leukocytes 0 % 0-10 Blood neutrophils automated count (number/volume) 2.8 10*3 1.8-7.8 Blood lymphocytes automated count (number/volume) 1.4 10*3 1.0-4.0 Blood monocytes automated count (number/volume) 0. 5 10*3 0.0-1.0 Automated eosinophil count 0.1 10*3/uL 0 .0-0.3 Automated blood basophil count (count/volume) 0.0 10*3/uL 0.0-0.1 Blood lactic acid measurement (moles/vol ume) - 12/24/19 20:45 Blood lactic acid measurement (moles/volume) 1.04 mmol/L 0.50-2.00 Erythrocyte sedimentation rate by levi gren method - 12/24/19 20:45 Erythrocyte sedimentation rate by westergren method 56 mm 0- 30 PT panel in platelet poor plasma by coag ulation assay - 12/24/19 20:45 Prothrombin time (PT) in platelet poor plasma by coagu lation assay 12.8 s 12.2-14.7 INR in platelet poor plasma or blood by coagulation as say 0.9 0.8-1.4 Activated partial thromboplastin time (a PTT) in platelet poor plasma bycoagulation assay - 12/24/19 20:45 Activated partial thromboplastin time (a PTT) in platelet poor plasma bycoagulation assay 35 s 24-35 Comprehensive metabolic panel - 12/24/19 20:45 Serum or plasma sodium measurement (moles/volume) 138 mmol/L 135-145 Serum or plasma potassium measurement (moles/volume) 4.0 mmol/L 3.6-5.0 Serum or plasma chloride measurement (moles/volume) 102 mmol/L 98-107 Carbon dioxide 24 mmol/L 21-32 Serum or plasma anion gap determination (moles/volume) 12 mmol/L 5-14 Serum or plasma urea nitrogen measurement (mass/volume ) 13 mg/dL 7-18 Serum or plasma creatinine measurement (mass/volume) 0.86 mg/dL 0.60-1.30 Serum or plasma urea nitrogen/creatinine mass ratio 15 NRG Serum or plasma creatinine measurement w ith calculation of estimated glomerular filtration rate > NRG Serum or plasma glucose measurement (mass/volume) 91 mg/dL 70-105 Serum or plasma calcium measurement (mass/volume) 8.8 mg/dL 8.5-10.1 Serum or plasma total bilirubin measurement (mass/volu me) 0.4 mg/dL 0.1-1.0 Serum or plasma alkaline phosphatase anthony surement (enzymatic activity/volume) 102 U/L 40-136 Serum or plasma aspartate aminotransfera se measurement (enzymatic activity/volume) 70 U/L 5-34 Serum or plasma alanine aminotransferase measurement (enzymatic activity/volume) 111 U/L 0-55 Serum or plasma protein measurement (mass/volume) 7.6 g/dL 6.4-8.2 Serum or plasma albumin measurement (mass/volume) 3.9 g/dL 3.2-4.5 CALCIUM CORRECTED 8.9 mg/dL 8.5-10.1 Magnesium - 12/24/19 20:45 Magnesium 2.0 mg/dL 1.6-2.4 Serum ragweed IgE antibody assay - 12/23 20:45 Serum ragweed IgE antibody assay 227 U/L 125-220 PROCALCITONIN (PCT) - 12/24/19 20:45 PROCALCITONIN (PCT) 0.03 ng/mL <0.10 Fibrin D-dimer FEU measurement in platel et poor plasma (mass/volume) - 12/24/19 20:45 Fibrin D-dimer FEU measurement in platelet poor plasma (mass/volume) 0.44 ug/mL 0.00-0.49 Serum or plasma lithium measurement (mol es/volume) - 12/24/19 20:45 BNP PT < 10.0 <100.0 Serum or plasma C reactive protein measu rement (mass/volume) - 12/24/19 20:45 Serum or plasma C reactive protein measurement (mass/v olume) 4.99 mg/dL 0.00-0.50 Encounters ACCT No. Visit Date/Time Discharge Status Pt. Type Provider Facility Loc./Unit Complaint [id number] 12/17/2019 16:50:00 12/17/2019 23:59: 59 [facility] Outpatient [facility] [id number] 12/17/2019 16:50:00 Document Registration [id number] 12/24/2019 20:09:00 23:05:00 DIS Emergency MALLORY DO, WILDA K Vi a [facility] ER COVID POSITIVE, SYMPTOM S WORSENING [id number] 07/07/2019 05:05:00 09:39:00 DIS Inpatient FRANKIE MCNAIR, TODD Bhakta Via [facility] ICU CP, PERICARDITIS [id number] 07/06/2019 23:49:00 07/07/2019 04:40 :00 DIS Outpatient MELITA, WES [place] [facility] [place] [id number] 07/07/2019 00:05:38 Document Registration
== END 2019-12-24 23:05 | disposition home or self-care (01) ==
LOC: EDUNIT# 20:08 → ER 20:09
DX: U07.1 COVID-19 (principal); J12.89 Other viral pneumonia
CPT/HCPCS: 36415; 71045; 80053; 83605; 83615; 83735; 83880; 84145; 85025; 85379; 85610; 85652; 85730; 86141; 87040; 93041; 96374; 96375

== ENCOUNTER → 2020-01-07 | Outpatient (CLI) | payer BC ==
[~2020-01-07] MED LIST: AZIT500T PO; BENZ100C18 PO; CEFD300C3 PO; GUAI1TBM19 PO; METH4TAB PO; RT-ALBUINH IH
--- NOTE | 2020-01-07 17:24 | Diagnostic Imaging Report ---
INDICATION: Follow-up pneumonia. Patient just got over COVID-19. FINDINGS: Frontal and lateral views of the chest demonstrate interval resolution of the pulmonary infiltrates. The lungs are clear. The heart and vascularity are normal. There are no pleural effusions. IMPRESSION: There has been interval resolution of the pulmonary infiltrates. Dictated by: Dictated on workstation # [id number]
== END ==
LOC: RAD 16:55
PROVIDERS: ATTEND Physician Assistant
DX: J18.9 Pneumonia, unspecified organism (principal); R91.8 Other nonspecific abnormal finding of lung field
CPT/HCPCS: 71046

== ENCOUNTER → 2020-02-05 | Outpatient (CLI) | payer BC ==
--- NOTE | 2020-02-05 15:35 | Diagnostic Imaging Report ---
INDICATION: Routine screening. COMPARISON: No prior mammograms are available for comparison. TECHNIQUE: 2D and 3D bilateral screening mammography was performed with CAD. FINDINGS: Scattered fibroglandular densities are identified bilaterally. No mass or malignant appearing microcalcifications are seen. There is benign calcification on the right. The axillae are unremarkable. IMPRESSION: No mammographic features suspicious for malignancy are identified. ACR BI-RADS Category 2: Benign findings. Result letter will be mailed to the patient. Note: At least 10% of breast cancer is not imaged by mammography. Dictated by: Dictated on workstation # [id number]
== END ==
LOC: RAD 11:30
PROVIDERS: ATTEND Physician Assistant
DX: Z12.31 Encounter for screening mammogram for malignant neoplasm of breast (principal)
CPT/HCPCS: 77063; 77067

== ENCOUNTER 2021-01-14 13:07 | Emergency (ER) | payer BC ==
[~2021-01-14] VITALS: Ht 165 cm; Wt 122.0 kg
--- NOTE | 2021-01-14 15:23 | Diagnostic Imaging Report ---
PROCEDURE: CT head without contrast. TECHNIQUE: Multiple contiguous axial images were obtained through the brain without the use of intravenous contrast. Auto Exposure Controls were utilized during the CT exam to meet ALARA standards for radiation dose reduction. INDICATION: Blurred vision. COMPARISON: None. FINDINGS: The ventricles normal in size, shape, and position. There is no midline shift or mass effect. There is no hemorrhage or evidence of acute ischemia. No extra-axial fluid collection or mass is identified. The bony calvarium and paranasal sinuses are grossly normal. The mastoids are clear. IMPRESSION: Negative CT head. Dictated by: Dictated on workstation # [id number]
--- NOTE | 2021-01-14 15:34 | ED EENT ---
History of Present Illness General Chief Complaint: Eye Problems Stated Complaint: BLURRED VISION-CT Nursing Triage Note: ARRIVED VIA AMB TO TRIAGE WITH COMPLAINTS OF BLURRED VISION MORE SO IN RIGHT EYE. STATES SHE WENT TO [facility] AND RULLED OUT ANYTHING EMERGENT BUT SENT HER HERE FOR A CT TO RULE OUT A TUMOR. Source: patient Exam Limitations: no limitations History of Present Illness Date Seen by Provider: Jan 14, 2021 Time Seen by Provider: 15:31 Initial Comments To ER with blurred vision right greater than left onset this morning. She saw [facility] and was referred to the emergency room for CT imaging. She has an appointment with Dr. Durán tomorrow. She checked her blood sugar and her blood pressure both of which were okay. She has a little bit of a pressure sensation in her head. No nausea. Timing/Duration: abrupt Severity: moderate Associated Symptoms: denies symptoms Allergies and Home Medications Allergies Coded Allergies: No Allergy Information Available (Unverified , 07/07/19) Home Medications Albuterol Sulfate 1 Puff Puff, 2 PUFF IH Q4H 1 PUFF = 90 MCG Prescribed by: WILDA TEJADA on 12/24/192227 Azithromycin 500 Mg Tablet, 500 MG PO DAILY Prescribed by: WILDA TEJADA on 12/24/192227 Benzonatate 100 Mg Capsule, 100-200 MG PO TID Prescribed by: WILDA TEJADA on 12/24/192227 Cefdinir 300 Mg Capsule, 300 MG PO BID Prescribed by: WILDA TEJADA on 12/24/192227 Guaifenesin/Dextromethorphan 1 Each Tbmp.12hr, 1 EACH PO BID Prescribed by: WILDA TEJADA on 12/24/192227 Methylprednisolone 4 Mg Tab.ds.pk, 4 MG PO UD PER DOSE PACK INSTRUCTIONS Prescribed by: WILDA TEJADA on 12/24/192227 Patient Home Medication List Home Medication List Reviewed: Yes Review of Systems Review of Systems Constitutional: see HPI Eyes: No Symptoms Reported Ears: No Symptoms Reported Nose: no symptoms reported Mouth: no symptoms reported Throat: no symptoms reported Respiratory: no symptoms reported Cardiovascular: no symptoms reported Musculoskeletal: no symptoms reported Skin: no symptoms reported Neurological: Headache Past Qdhugqq-Dznwmx-Putniy Hx Patient Social History Tobacco Use?: No Use of E-Cig and/or Vaping Jason: Never a User Substance use?: No Seasonal Allergies Seasonal Allergies: No Past Medical History Surgeries: Yes ( X2;HYSTEROSCOPY/D&C;R ORBITAL PSUEDOTUMOR REMOVAL/2 "EYE TUCKS") Section, Eye Surgery Respiratory: No Cardiac: No Hypertension Neurological: No Reproductive Disorders: Yes Female Reproductive Disorders: Polycystic Ovarian Dis Genitourinary: No Gastrointestinal: No Musculoskeletal: No Endocrine: Yes ("INSULIN RESISTANCE"--QUIT METFORMIN YEARS AGO ; OBESITY) Diabetes, Non-Insulin dep HEENT: Yes (RIGHT ORBITAL PSEUDOTUMOR REMOVAL WITH 2 "EYE TUCKS" ) Cancer: No Psychosocial: No Integumentary: No Blood Disorders: No Physical Exam Vital Signs Vital Signs - First Documented 01/14/21 13:15 Temp 36.5 Pulse 83 Resp 16 B/P (MAP) 136/75 (95) Pulse Ox 96 O2 Delivery Room Air Height, Weight, BMI Height: '" Weight: lbs. oz. kg; 44.00 BMI Method: General Appearance: WD/WN, no apparent distress Eyes: bilateral eye normal inspection, bilateral eye PERRL, bilateral eye EOMI Ears: bilateral ear auricle normal, bilateral ear canal normal Nose: normal inspection, active bleeding Neck: non-tender, full range of motion Respiratory: no respiratory distress, no accessory muscle use Gastrointestinal: normal bowel sounds, non tender Neurologic/Psychiatric: alert, normal mood/affect, oriented x 3 Skin: normal color, warm/dry Progress/Results/Core Measures Results/Orders My Orders Orders - DONY NOLAND APRN Ct Head Wo (01/14/21 14:42) Vital Signs/I&O 01/14/21 13:15 Temp 36.5 Pulse 83 Resp 16 B/P (MAP) 136/75 (95) Pulse Ox 96 O2 Delivery Room Air Blood Pressure Mean: 95 Departure Impression Primary Impression: Headache Additional Impression: Blurred vision, bilateral Disposition: 01 HOME, SELF-CARE Condition: Stable Departure-Patient Inst. Decision time for Depature: 15:33 Referrals: NO,LOCAL PHYSICIAN (PCP/Family) Primary Care Physician Patient Instructions: Headache, Adult ED Add. Discharge Instructions: 1. Return to ER for any concerns 2. Follow-up with your doctor next week 3. All discharge instructions reviewed with patient and/or family. Voiced understanding. DONY NOLAND APRN Jan 14, 2021 15:34
[2021-01-14] MEDS ORDERED: KETOROLAC 60 MG/2 ML VIAL IM ONE (16:00)
[2021-01-14 16:04] VITALS: BP 130/82
[2021-01-14 16:08] LABS: BASOPHILS # (AUTO) 0.1 10^3/uL (0.0-0.1); BASOPHILS % (AUTO) 1 % (0-10); EOSINOPHILS # (AUTO) 0.3 10^3/uL (0.0-0.3); EOSINOPHILS % (AUTO) 3 % (0-10); HEMATOCRIT 44 % (35-52); HEMOGLOBIN 14.4 g/dL (11.5-16.0); LYMPHOCYTES # (AUTO) 2.7 10^3/uL (1.0-4.0); LYMPHOCYTES % (AUTO) 26 % (12-44); MEAN CORPUSCULAR HEMOGLOBIN 30 pg (25-34); MEAN CORPUSCULAR HGB CONC 33 g/dL (32-36); MEAN CORPUSCULAR VOLUME 94 fL (80-99); MEAN PLATELET VOLUME 9.3 fL (9.0-12.2); MONOCYTES # (AUTO) 0.8 10^3/uL (0.0-1.0); MONOCYTES % (AUTO) 7 % (0-12); NEUTROPHILS # (AUTO) 6.6 10^3/uL (1.8-7.8); NEUTROPHILS % (AUTO) 64 % (42-75); PLATELET COUNT 290 10^3/uL (130-400); WHITE BLOOD COUNT 10.4 10^3/uL (4.3-11.0)
[2021-01-14 16:22] LABS: POTASSIUM 3.8 MMOL/L (3.6-5.0)
[2021-01-14 16:23] LABS: CALCIUM 10.3 MG/DL (8.5-10.1)
[2021-01-14 16:28] LABS: CREATININE SERUM 0.79 MG/DL (0.60-1.30)
[2021-01-14 16:29] LABS: ERYTHROCYTE SEDIMENTATION RATE 39 MM/HR (0-30)
== END 2021-01-14 16:07 | disposition home or self-care (01) ==
LOC: EDUNIT# 13:07 → ER 13:09
DX: H53.8 Other visual disturbances (principal); I10 Essential (primary) hypertension; E11.9 Type 2 diabetes mellitus without complications; Z79.52 Long term (current) use of systemic steroids
CPT/HCPCS: 36415; 70450; 80048; 85025; 85652